=== PATIENT | male | born 1940 | race African-American/Black ===

== ENCOUNTER 2017-03-18 13:18 | Observation (INO) | payer OTHER ==
[~2017-03-18] VITALS: Ht 188 cm; Wt 66.1 kg
[2017-03-18 14:25] LABS: EOSINOPHIL COUNT 0.1 K/uL (0-0.3); HEMATOCRIT 42.1 % (38.0-50.0); IMMATURE GRANULOCYTE (%) 0.4 % (0.0-0.7); INSTRUMENT ABS NEUTROPHIL CT 3.5 K/uL; MCH 31.7 PG (29.0-34.0); MCHC 32.1 G/DL (30.0-36.0); MCV 98.8 FL (86-99); MEAN PLAT.VOLUME 10.1 uM^3 (9.0-12.4); MONOCYTE COUNT 0.5 K/uL (0-0.8); NEUTROPHIL (%) 69.6 % (45-76); NEUTROPHIL COUNT 3.5 K/uL (1.8-6.4); PLATELET COUNT 135 K/uL (156-360); RBC DIS.WIDTH-CV 14.1 % (11.8-14.6); RBC DIS.WIDTH-SD 51.4 % (39-53); RED BLOOD COUNT 4.26 M/uL (4.00-5.50)
[2017-03-18 14:29] LABS: INTER. NORMALIZED RATIO 1.1; PROTHROMBIN TIME 11.9 SEC (10.2-12.9)
[2017-03-18 14:32] LABS: PTT 26.6 SEC (25-37)
[2017-03-18 14:38] LABS: CHLORIDE 108 mEq/L (99-109); POTASSIUM 3.7 mEq/L (3.7-5.4); SODIUM 143 mEq/L (136-147)
[2017-03-18 14:40] LABS: GLUCOSE 112 mg/dL (70-99)
[2017-03-18 14:41] LABS: ANION GAP 10 MEQ/L (2-14)
[2017-03-18 14:42] LABS: TOTAL BILIRUBIN 0.4 mg/dL (0.0-1.0)
[2017-03-18 14:43] LABS: ALKALINE PHOSPHATASE 56 IU/L (3-129)
[2017-03-18 14:44] LABS: GFR ESTIMATE (CALCULATED) > 59 mL/min/
[2017-03-18 14:45] LABS: DIRECT BILIRUBIN 0.2 mg/dL (0.0-0.3); UREA NITROGEN (BUN) 34 mg/dL (9-23)
[2017-03-18 14:47] LABS: LIPASE 18 U/L (1.0-51.0)
[2017-03-18 14:49] LABS: TROP-I INTERPRETATION NEGATIVE; TROPONIN-I 0.11 ng/mL (0.0-0.30)
[2017-03-18 18:02] LABS: ADD MIUA? YES; BILIRUBIN NEGATIVE; BLOOD NEGATIVE; COLOR YELLOW ((YELLOW)); GLUCOSE (STRIP) NEGATIVE; KETONES NEGATIVE; LEUKOCYTES NEGATIVE; NITRITE NEGATIVE; PROTEIN (STRIP) NEGATIVE; SPECIFIC GRAVITY 1.025 (1.000-1.030); UROBILINOGEN 0.2 MG/DL (0.2-1.0)
[2017-03-18 18:05] LABS: BACTERIA NONE SEEN /HPF; EPITHELIAL CELLS RARE /HPF; MUCUS TRACE /LPF; RED BLOOD CELLS 0-5 /HPF (0-5); UCUL ADDED? NO; WHITE BLOOD CELLS 0-5 /HPF (0-5)
[2017-03-18] MEDS ORDERED: PRAVASTATIN SOD40 MG PO (18:23)
[2017-03-18] MEDS ORDERED: MEMANTINE HCL10 MG PO (18:23)
[2017-03-18] MEDS ORDERED: GABAPENTIN300 MG PO (18:24)
[2017-03-18] MEDS ORDERED: MEN'S MULTI-VI1 EACH PO (18:24)
[2017-03-18] MEDS ORDERED: ASPIR 8181 M1 PO (18:24)
[2017-03-18] MEDS ORDERED: ARICEPT10 MG PO (18:25)
[2017-03-18] MEDS ORDERED: LISINOPRIL40 MG PO (18:25)
[2017-03-18] MEDS ORDERED: SPIRIVA1 INHALATI IH (18:25)
[2017-03-18 21:35] LABS: TROP-I INTERPRETATION NEGATIVE
[2017-03-18 21:58] VITALS: BP 189/103
[2017-03-18 22:46] VITALS: BP 160/90
[2017-03-19 00:06] VITALS: BP 154/90
[2017-03-19 05:03] VITALS: BP 158/88
[2017-03-19 05:42] LABS: EOSINOPHIL (%) 1.2 % (0-5); EOSINOPHIL COUNT 0.1 K/uL (0-0.3); HEMATOCRIT 35.2 % (38.0-50.0); IMMATURE GRANULOCYTE (%) 0.2 % (0.0-0.7); INSTRUMENT ABS NEUTROPHIL CT 2.8 K/uL; LYMPHOCYTE COUNT 1.7 K/uL (1.0-2.8); MCH 32.2 PG (29.0-34.0); MCV 97.8 FL (86-99); MEAN PLAT.VOLUME 10.8 uM^3 (9.0-12.4); MONOCYTE (%) 11.5 % (3-12); MONOCYTE COUNT 0.6 K/uL (0-0.8); NEUTROPHIL (%) 54.5 % (45-76); NEUTROPHIL COUNT 2.8 K/uL (1.8-6.4); PLATELET COUNT 132 K/uL (156-360); RBC DIS.WIDTH-CV 13.9 % (11.8-14.6); RBC DIS.WIDTH-SD 50.4 % (39-53); WHITE BLOOD COUNT 5.2 K/uL (4.1-10.2)
[2017-03-19 06:03] LABS: ANION GAP 9 MEQ/L (2-14); CHLORIDE 109 MEQ/L (99-109); GFR ESTIMATE (CALCULATED) > 59 mL/min/; SAMPLE HEMOLYSIS CHECK 0; SAMPLE ICTERIC CHECK 0; SAMPLE LIPEMIA CHECK 0; SODIUM 144 MEQ/L (136-147); UREA NITROGEN (BUN) 28 mg/dL (9-23)
[2017-03-19 06:07] LABS: GLUCOSE 81 mg/dL (70-99)
[2017-03-19 07:45] VITALS: BP 177/98
[2017-03-19 10:29] VITALS: BP 98/50
[2017-03-19 11:17] LABS: TREPONEMA ANTIBODY NEGATIVE (NEGATIVE)
[2017-03-19 12:25] VITALS: BP 136/70
== END 2017-03-19 17:39 | disposition home or self-care (01) ==
LOC: EME 13:18 → EDOF 20:38 → 5WEST 20:38 → ENRESERV 20:42 → 5WEST 21:45
PROVIDERS: Emergency Medicine; Hospitalist; Internal Medicine
DX: G93.40 Encephalopathy, unspecified (principal); G30.9 Alzheimer's disease, unspecified; F02.80 Dementia in other diseases classified elsewhere, unspecified severity, without behavioral disturbance, psychotic disturbance, mood disturbance, and anxiety; E86.0 Dehydration; N17.9 Acute kidney failure, unspecified; I10 Essential (primary) hypertension; J44.9 Chronic obstructive pulmonary disease, unspecified; G93.89 Other specified disorders of brain; M79.89 Other specified soft tissue disorders; E78.5 Hyperlipidemia, unspecified; Z86.73 Personal history of transient ischemic attack (TIA), and cerebral infarction without residual deficits; Z79.82 Long term (current) use of aspirin
CPT/HCPCS: 70450; 70551; 71010; 74176; 80048; 80076; 81003; 83605; 83690; 83880; 84443; 84484; 85025; 85610; 85730; 86780; 92610 GN; 93005; 94640; 99281; 99285; G0378; G8978 CL; G8979 CJ; G8980 GP CL; G8987 GO CM; G8988 GO CL; G8989 GO CM; G8996 GN CI; G8997 GN CH; J1644